=== PATIENT | female | born 1955 | race Caucasian/White ===

== ENCOUNTER → 2017-01-09 | Outpatient (CLI) | payer BC ==
--- NOTE | 2017-01-09 12:58 | REP ---
Clinical: Generalized abdominal pain. Technique: Single supine view of the abdomen and pelvis. Findings: Bowel gas pattern is nonspecific and without obstruction or perforation. No organomegaly. No significant abnormal calcifications. Skeletal structures intact. Phleboliths noted in the pelvis. Impression: Nonspecific bowel gas pattern. Signed by Nicholas Fernandez MD 01/09/2017 12:50 P
== END ==
LOC: M LRY 11:16
PROVIDERS: ATTEND Nurse Practitioner Family
DX: R10.84 Generalized abdominal pain (principal)

== ENCOUNTER → 2017-01-09 | Outpatient (REF) | payer BC | LOC: M SFHCLERA 12:18 | PROVIDERS: ATTEND Nurse Practitioner Family | DX: R30.0 Dysuria (principal) ==